=== PATIENT | male | born 1985 | race Two or more races ===

== ENCOUNTER 2022-10-28 14:44 | Emergency (ER) | payer OTHER ==
[~2022-10-28] VITALS: Ht 170.2 cm; Wt 66.7 kg
--- NOTE | 2022-10-28 14:45 | NUR ---
US TECH AT BEDSIDE
--- NOTE | 2022-10-28 15:10 | NUR ---
NEGATIVE TO DVT , RESULTS RELAYED TO ERMD BY US TECH
--- NOTE | 2022-10-28 15:10 | NUR ---
LEFT LEG SWELLING STARTED A WEEK AGO
[2022-10-28 15:33] LABS: BASOPHILS % (AUTO) 0.4 % (0.0-2.0); EOSINOPHILS % (AUTO) 3.9 % (0.0-6.0); HEMATOCRIT 39 % (39-51); HEMOGLOBIN 12.5 g/dL (13.5-17.5); LYMPHOCYTES # (AUTO) 1.7 K/uL (0.8-4.8); LYMPHOCYTES % (AUTO) 17.2 % (20.0-44.0); MEAN CORPUSCULAR HGB CONC 32 g/dl (31.0-36.0); MEAN CORPUSCULAR VOLUME 91 fL (80-96); MONOCYTES # (AUTO) 0.8 K/uL (0.1-1.30); NEUTROPHILS # (AUTO) 7.1 K/uL (1.8-8.9); NEUTROPHILS % (AUTO) 70.5 % (43.0-81.0); PLATELET COUNT (AUTO) 321 K/uL (150-450); RED BLOOD CELL COUNT(AUTO) 4.29 MIL/uL (4.5-6.0); WHITE BLOOD COUNT (AUTO) 10.1 K/uL (4.3-11.0)
[2022-10-28 15:45] LABS: CALCIUM, SERUM 9.1 mg/dL (8.5-10.1); CREATININE 0.8 mg/dL (0.6-1.3); POTASSIUM 3.7 mmol/L (3.5-5.1)
[2022-10-28 16:01] LABS: BILIRUBIN,TOTAL 0.4 mg/dL (0.2-1.0); TOTAL PROTEIN, SERUM 6.9 g/dL (6.4-8.2)
--- NOTE | 2022-10-28 16:44 | NUR ---
Patient discharged to home in stable condition. Written and verbal after care instructions given. Patient verbalizes understanding of instruction.
[2022-10-28 16:45] VITALS: BP 131/81
== END 2022-10-28 16:45 | disposition home or self-care (01) ==
LOC: ER 14:54
DX: R60.0 Localized edema (principal)
CPT/HCPCS: 36415; 80053-TC; 83880; 85025-TC; 85730-TC; 93971-TC